=== PATIENT | female | born 1975 | race Caucasian/White ===

== ENCOUNTER 2025-02-21 07:47 | Emergency (ER) | payer MEDICAID ==
[~2025-02-21] VITALS: Ht 172.7 cm; Wt 55.6 kg
[~2025-02-21 07:47] MED LIST: LEVO500T2 PO; POTA20TA39 PO; ZOF4T PO
[2025-02-21 07:51] VITALS: TEMP 98.3
--- NOTE | 2025-02-21 08:08 | Physician Documentation ---
History of Present Illness General Chief Complaint: Abscess Stated Complaint: MOUTH ABSCESS Time Seen by MD: 08:07 Primary Medical Doctor: PATIENT DENIES PMD, DAWKINS, OB History of Present Illness Initial Comments Patient is a 49-year-old female that was admitted to [facility] with the sore throat his throat swelling and possible Vitor's angina the patient was treated with the antibiotics and discharged the patient is here today because she continues to have some sore throat and she continues to have some difficulty with the speech she is able to swallow her secretions there are no fevers. The patient was discharged on Augmentin and they changed her antibiotics clindamycin. The patient's symptoms are moderate and persistent. Medication Reconciliation Allergies: Coded Allergies: ampicillin (Verified Allergy, Severe, throat swelling, 02/21/25) Scheduled Levofloxacin (Levaquin), 500 MG PO DAILY, (Reported) Ondansetron ODT* (Zofran ODT*), 4 MG PO Q6H, (Reported) Miscellaneous Medications Potassium Chloride (K-Dur), 20 MEQ PO, (Reported) Past Medical History Past Medical History: No Pertinent History, Bronchitis Past Surgical History: no surgical history Smoking: Cigarettes Alcohol Use: None Drug Use: none Lives with: Family Lives In: Home Review of Systems All Other Systems at this time: Reviewed and Negative Physical Exam Physical Exam Vital Signs: Temperature: 98.3, Source: Oral, Heart Rate: 65, Respiratory Rate: 20, BP: 139/78, Pulse Oximetry: 99, Weight: 55.600 Oxygen Flow Rate: 0 Physical Exam VITALS: Reviewed and as above. GENERAL: Alert, no apparent distress. HEENT: Normocephalic, atraumatic, PERRL, EOMI, dry mucosa, no erythema the patient does have some edema of the uvula and some slight edema of the peritonsillar pillars bilaterally she also has a slight some slight edema under her tongue the tongue itself looks normal there is no areas of fluctuance the patient is a neck is supple and soft there is no fullness in the submandibular region. RESPIRATORY: Lungs clear, normal breath sounds, no respiratory distress. CHEST: No accessory muscle use, no retractions CV: Regular rate, rhythm, no edema, no murmur, No: JVD GI: Soft, non-tender, bowels sounds present, no rebound, guarding, or rigidity BACK: No CVA tenderness, or swelling MUSCULOSKELETAL: No deformities, no edema SKIN: Warm and dry, no rash NEURO: Oriented x4, No motor or sensory deficit PSYCH: Normal mood and affect, no agitation Progress Results/Orders Results/Orders Completed Orders - SHEILA GILLILAND MD Dexamethasone Inj (Decadron 10mg/Ml Inj) (02/21/25 08:19) Medications Received in ER Medications (Trade) Dose Ordered Sig/Devin Route PRN Reason Start Time Stop Time Status Last Admin Dose Admin (Decadron 10mg/ ml inj) 20 mg ONCE STAT PO 02/21/25 08:19 02/21/25 08:20 DC 02/21/25 08:25 20 MG Vital Signs 02/21/25 02/21/25 07:51 08:29 Temp 98.3 Pulse 65 65 Resp 20 15 B/P (MAP) 139/78 120/82 Pulse Ox 99 97 O2 Flow Rate 0 Medical Decision Making Additional information obtaine: old records Findings The patient was recently discharged from [facility] for submandibular cellulitis and concern for Vitor's angina, she does have some edema the posterior pharynx as well as some edema under the tongue she is able to handle her secretions she is breathing comfortably there was no submandibular fullness the patient is nontoxic the patient will be given an oral dose of Decadron she has been advised to continue taking her antibiotics and to return if she develops worsening of her symptoms. The patient's pulse oximetry was interpreted as normal and adequate. The patient's uvula is midline Differential Diagnosis Pharyngitis, epiglottitis, Vitor's angina, peritonsillar abscess Departure Time of Disposition: 08:18 Disposition: 01 HOME / SELF CARE / HOMELESS Impression: Primary Impression: Pharyngitis Qualified Codes: J02.9 - Acute pharyngitis, unspecified Discharge Instructions: Pharyngitis, [id number] Additional Instructions: Continue the antibiotics, return for worsening of your symptoms. Referrals: NO PRIMARY CARE PROVIDER (PCP) Signature Scribe Signature: No scribe Attestation: The note accurately reflects work and decisions made by me.Sheila Gilliland MD 02/21/25 09:08 SHEILA GILLILAND MD Feb 21, 2025 08:08
[2025-02-21] MEDS: dexamethasone sod phosphate 10mg/ml inj PO STA (08:25)
[2025-02-21 08:29] VITALS: BP 120/82; PULSE 65; RESP 15; O2SAT 97
== END 2025-02-21 08:30 | disposition home or self-care (01) ==
LOC: ER 07:48
DX: J02.9 Acute pharyngitis, unspecified (principal); Z88.0 Allergy status to penicillin; Z88.8 Allergy status to other drugs, medicaments and biological substances
CPT/HCPCS: 99283; J1100